=== PATIENT | male | born 1975 | race Caucasian/White ===

== ENCOUNTER 2016-03-20 12:46 | Observation (INO) | payer SELFPAY ==
[~2016-03-20] VITALS: Ht 188 cm; Wt 65.1 kg
[2016-03-20 16:14] VITALS: BP_SYST 118; BP_SYST 120; RESP 24; TEMP 97.7
[2016-03-20 16:15] VITALS: BMI 18.4
[2016-03-20] MEDS ORDERED: ASPIRIN 81 MG CHEW TAB PO STA (17:16)
[2016-03-20] MEDS ORDERED: SALINE FLUSH 10 ML FLUSH PRN (17:20)
[2016-03-20] MEDS ORDERED: ACETAMINOPHEN 325 MG TAB PO PRN (17:20)
[2016-03-20] MEDS ORDERED: ONDANSETRON 4 MG VIAL IV PRN (17:20)
[2016-03-20] MEDS ORDERED: TEMAZEPAM 7.5 MG CAP PO PRN (17:20)
[2016-03-20] MEDS ORDERED: MORPHINE 2 MG/ML SYR IV PRN (17:20)
[2016-03-20] MEDS ORDERED: TEMAZEPAM 15 MG CAP PO PRN (17:20)
[2016-03-20] MEDS ORDERED: TRAMADOL 50 MG TAB PO PRN (17:20)
[2016-03-20] MEDS ORDERED: DOCUSATE SOD 100 MG CAP PO PRN (17:20)
[2016-03-20] MEDS ORDERED: NITROGLYCERIN SL 0.4 MG TAB SL PRN (17:20)
[2016-03-20] MEDS ORDERED: LORAZEPAM 0.5 MG TAB PO PRN (17:20)
[2016-03-20] MEDS ORDERED: ALU/MAG/SIM 30 ML UDC PO PRN (17:20)
[2016-03-20] MEDS ORDERED: FONDAPARINUX 2.5 MG SYR SUBQ SCH (18:00)
[2016-03-20 19:37] VITALS: BP_SYST 139; RESP 22; TEMP 99.6
[2016-03-20 20:00] VITALS: BP_SYST 139
[2016-03-20] MEDS: SALINE FLUSH 10 ML FLUSH SCH (20:30)
[2016-03-20 22:37] VITALS: BP_SYST 128; RESP 16; TEMP 99.9
[2016-03-20 22:48] VITALS: RESP 16
[2016-03-21] VITALS: BP_SYST 128
[2016-03-21 03:15] VITALS: BP_SYST 121; RESP 18; TEMP 98.2
[2016-03-21 04:00] VITALS: BP_SYST 121
[2016-03-21] MEDS ORDERED: SODIUM CHLORIDE 0.9% FLUSH BAG 500 ML IV SCH (06:00)
[2016-03-21 07:32] VITALS: BP_SYST 138; RESP 16; TEMP 98.3
[2016-03-21] MEDS ORDERED: ASPIRIN 81 MG CHEW TAB PO SCH (08:00)
[2016-03-21] MEDS: SALINE FLUSH 10 ML FLUSH SCH (08:20)
[2016-03-21 09:20] VITALS: BP_SYST 138; RESP 16; TEMP 98.3
== END 2016-03-21 09:05 | disposition home or self-care (01) ==
LOC: ENRESERVTM → ENRESERVDT → ER 12:46 → EMR 14:53 → ENPENDDIS 14:53 → PCU2 16:01
PROVIDERS: ADMIT Internal Medicine Cardiovascular Disease; ATTEND Internal Medicine Cardiovascular Disease
CPT/HCPCS: 36415; 71020; 80053; 80061; 82550; 82553; 83735; 84439; 84443; 84484; 85025; 85379; 85610; 85730; 93005; 94799